=== PATIENT | female | born 1960 | race Asian ===

== ENCOUNTER 2022-11-06 22:30 | Emergency (ER) | payer OTHER, MEDICAID, SELFPAY ==
[2022-11-06 22:38] VITALS: BP 180/85; PULSE 75; RESP 18; TEMP 36.6; O2SAT 99; BMI 21.7
[2022-11-06 23:13] LABS: Add Manual Diff / Slide Review NO; Basophils Absolute Auto 100 /uL (0-100); Basophils Percent Auto 1.1 % (0-2); Eosinophils Absolute Auto 100 /uL (0-450); Eosinophils Percent Auto 0.8 % (2-4); Hematocrit 38.7 % (36-46); Lymphocytes Absolute Auto 2500 /uL (1100-4500); Lymphocytes Percent Auto 37.6 % (25-40); Mean Corpuscular HGB Conc 33.6 % (30-36); Mean Corpuscular Hemoglobin 29.4 PG (26-34); Mean Corpuscular Volume 87.5 fL (80-100); Monocytes Absolute Auto 400 /uL (0-900); Monocytes Percent Auto 6.1 % (3-14); Neutrophils Absolute Auto 3600 /uL (1500-7000); Neutrophils Percent Auto 54.4 % (50-75); Platelet Count 267 X10^3/uL (150-400); Red Blood Cell Count 4.43 X10^6/uL (4.0-5.2); Red Cell Distribution Width 13.6 % (11.6-14.8); White Blood Cell Count 6.6 X10^3/uL (4.5-11.0)
[2022-11-06 23:20] LABS: Alanine Aminotransferase 24 IU/L (<35); Albumin 4.7 g/dL (3.5-5.0); Albumin Globulin Ratio 1.3 (1.0-2.8); Alkaline Phosphatase 71 U/L (38-126); Aspartate Aminotransferase 27 IU/L (14-36); BUN Creatinine Ratio 21.2 (6-22); Bilirubin Total 0.8 mg/dL (0.2-1.3); Blood Urea Nitrogen 14 mg/dL (7-17); Calcium 10.3 mg/dL (8.4-10.2); Carbon Dioxide 30 mmol/L (22-32); Chloride 100 mmol/L (98-107); Estimated Glomerular Filt Rate > 60 mL/min (>60); Globulin 3.6 g/dL (1.7-4.1); Glucose 157 mg/dL (80-110); HEMOLYSIS < 15 (0-50); Lipase 189 U/L (23-300); Potassium 4.1 mmol/L (3.4-5.1); Sodium 138 mmol/L (137-145); Total Protein 8.3 g/dL (6.3-8.2)
[2022-11-06 23:36] VITALS: PULSE 62; RESP 16; O2SAT 99
--- NOTE | 2022-11-06 23:41 | ED.ABDPAIN ---
HPI - Abdominal Pain General Chief Complaint: Abdominal Pain Stated Complaint: abd pain Time Seen by Provider: 11/06/22 23:18 Source: patient Mode of arrival: Ambulatory History of Present Illness HPI narrative: 61-year-old female nonsmoker without chronic medical history presents with her daughter and a chief complaint of 5 days of gradually worsening abdominal pain. She states it started in her epigastrium and has now moved down to her periumbilical region. It seems to be worse when she moves and improves with rest. She denies that it radiates anywhere. It does not get worse with food though eating makes her nauseated. She is had no vomiting and denies any fever or chills. She denies any change in bowel habits such as constipation or diarrhea and has no urinary complaints such as dysuria, frequency, urgency or hematuria. Related Data Previous Rx's Medication Instructions Recorded hydrocodone 5 mg-acetaminophen 325 1 tab PO Q4-6H PRN pain #10 tabs 11/07/22 mg tablet hyoscyamine sulfate 0.125 mg tablet 0.125 mg PO BID-QID PRN dyspepsia 11/07/22 #20 tabs ondansetron 4 mg disintegrating 4 mg PO TID-QID PRN nausea and 11/07/22 tablet vomiting #10 tabs Allergies Allergy/AdvReac Type Severity Reaction Status Date / Time No Known Drug Allergies Allergy Verified 11/06/22 22:38 Review of Systems Review of Systems Narrative: GENERAL: Denies chills, fatigue, malaise, fever, sweats. HEENT: Denies sinus pain, ear pain, sore throat, difficulty swallowing, dizziness. RESPIRATORY: Denies dyspnea, cough, wheezing, hemoptysis, sputum. CARDIOVASCULAR: Denies chest pain, palpitations, orthopnea, edema, GASTROINTESTINAL: See HPI : Denies dysuria, frequency, incontinence, hematuria, urinary retention. MUSCULOSKELETAL: denies weakness, joint pain, or bony pain SKIN: Denies rash, skin lesions, or other NEUROLOGIC: Denies weakness, headache, numbness, change in speech, confusion, seizures, incoordination. PSYCHIATRIC: No concerning psychosocial issues. 12 point review of systems is negative except for those stated above Patient History Social History Smoking Status: Never smoker Smoking Status: Never smoker Exam Narrative Exam Narrative: GENERAL: [61] year old patient appears stated age. Well-developed patient, in mild distress. HEAD: Atraumatic. Normocephalic. EYES: Pupils equal round and reactive. Extraocular motions intact. No scleral icterus. No injection or drainage. ENT: Nose without bleeding, purulent drainage. Throat without erythema, tonsillar hypertrophy or exudate. Airway patent. NECK: Trachea midline. Non tender CARDIOVASCULAR: Regular rate and rhythm without murmurs, gallops, or rubs. RESPIRATORY: Clear to auscultation. Breath sounds equal bilaterally. No wheezes, rales, or rhonchi. GASTROINTESTINAL: Abdomen soft, minimal periumbilical tenderness, nondistended. Bowel sounds present in all 4 quadrants EXTREMITIES: No edema or joint tenderness. BACK: Nontender without deformity or crepitance. No flank tenderness. NEURO: AOx3. SKIN: No rash or erythema of visible areas Initial Vital Signs Initial Vital Signs: Vital Signs Temperature 97.9 F 11/06/22 22:38 Pulse Rate 75 11/06/22 22:38 Respiratory Rate 18 11/06/22 22:38 Blood Pressure 180/85 H 11/06/22 22:38 Pulse Oximetry 99 11/06/22 22:38 Oxygen Delivery Method Room Air 11/06/22 22:38 Course Orders Ordered: ED Orders 11/06/22 22:45 EKG-12 Lead Stat 11/06/22 23:00 Complete Blood Count AUTO DIFF Stat Comprehensive Metabolic Panel Stat Lipase Stat 11/06/22 23:42 CT abdomen pelvis w con Stat Ondansetron HCl (Ondansetron 4 Mg Odt) 4 mg PO NOW PRN PRN Reason: Nausea And Vomiting Ondansetron HCl (Ondansetron 4 Mg/2 Ml Inj) 4 mg IV NOW PRN PRN Reason: Nausea And Vomiting Discontinued Medications Hydrocodone Bitart/Acetaminophen (Hydrocodone/Acet 5/325 Prepack) 1 bottle MISC SEEINSTR ONE Stop: 11/07/22 02:55 Sodium Chloride (Normal Saline 0.9%) 1,000 mls @ 1,000 mls/hr IV BOLUS ONE Stop: 11/07/22 02:47 Last Admin: 11/07/22 02:05 Dose: 1,000 mls/hr Documented By: GC Morphine Sulfate (Morphine 4 Mg/Ml Inj) 4 mg IV NOW ONE Stop: 11/07/22 01:49 Last Admin: 11/07/22 02:06 Dose: 4 mg Documented By: MAXINE Ondansetron HCl (Ondansetron 4 Mg Odt Prepack) 1 bottle MISC SEEINSTR ONE Stop: 11/07/22 02:55 Pantoprazole Sodium (Pantoprazole 40 Mg Vial) 40 mg IV NOW ONE Stop: 11/07/22 01:49 Last Admin: 11/07/22 02:06 Dose: 40 mg Documented By: MAXINE Vital Signs Vital signs: Vital Signs - 8 hr 11/06/22 22:38 11/06/22 23:36 11/07/22 00:06 Temperature 97.9 F Pulse Rate 75 62 69 Respiratory Rate 18 16 16 Blood Pressure 180/85 H Pulse Oximetry 99 99 99 Oxygen Delivery Method Room Air 11/07/22 00:08 11/07/22 00:08 11/07/22 00:30 Temperature Pulse Rate 70 Respiratory Rate 16 Blood Pressure 163/79 H 134/70 Pulse Oximetry 99 Oxygen Delivery Method 11/07/22 00:30 11/07/22 01:00 11/07/22 01:00 Temperature Pulse Rate 62 62 Respiratory Rate 16 14 Blood Pressure 157/77 H Pulse Oximetry 97 95 Oxygen Delivery Method 11/07/22 01:30 11/07/22 01:30 11/07/22 02:00 Temperature Pulse Rate 60 Respiratory Rate 15 Blood Pressure 123/70 119/69 Pulse Oximetry 96 Oxygen Delivery Method 11/07/22 02:00 11/07/22 02:30 11/07/22 02:30 Temperature Pulse Rate 60 57 L Respiratory Rate 22 13 Blood Pressure 126/65 Pulse Oximetry 95 96 Oxygen Delivery Method MDM - Abdominal Pain Lab Data 11/06/22 23:00 11/06/22 23:00 Labs: Lab Results 11/06/22 11/06/22 Range/Units 23:00 23:00 WBC 6.6 (4.5-11.0) X10^3/uL RBC 4.43 (4.0-5.2) X10^6/uL Hgb 13.0 (12.0-16.0) g/dL Hct 38.7 (36-46) % MCV 87.5 (80-100) fL MCH 29.4 (26-34) PG MCHC 33.6 (30-36) % RDW 13.6 (11.6-14.8) % Plt Count 267 (150-400) X10^3/uL Neut % (Auto) 54.4 (50-75) % Lymph % (Auto) 37.6 (25-40) % [place] % (Auto) 6.1 (3-14) % Eos % (Auto) 0.8 L (2-4) % Baso % (Auto) 1.1 (0-2) % Neut # (Auto) 3600 (7172-6161) /uL Lymph # (Auto) 2500 (3741-8406) /uL [place] # (Auto) 400 (0-900) /uL Eos # (Auto) 100 (0-450) /uL Baso # (Auto) 100 (0-100) /uL Sodium 138 (137-145) mmol/L Potassium 4.1 (3.4-5.1) mmol/L Chloride 100 (98-107) mmol/L Carbon Dioxide 30 (22-32) mmol/L BUN 14 (7-17) mg/dL Creatinine 0.66 (0.52-1.04) mg/dL Estimated GFR > 60 (>60) mL/min BUN/Creatinine Ratio 21.2 (6-22) Glucose 157 H (80-110) mg/dL Calcium 10.3 H (8.4-10.2) mg/dL Total Bilirubin 0.8 (0.2-1.3) mg/dL AST 27 (14-36) IU/L ALT 24 (<35) IU/L Alkaline Phosphatase 71 (38-126) U/L Total Protein 8.3 H (6.3-8.2) g/dL Albumin 4.7 (3.5-5.0) g/dL Globulin 3.6 (1.7-4.1) g/dL Albumin/Globulin Ratio 1.3 (1.0-2.8) Lipase 189 (23-300) U/L Point of care testing: Urine Dip Bedside Urine Glucose Negative Bedside Urine Bilirubin - Negative Bedside Urine Ketone - Negative Urine Specific [place] 1.005 Bedside Urine Occult Blood - Negative Bedside Urine pH 6.0 Bedside Urine Protein - Negative Bedside Urine Urobilinogen - Negative Bedside Urine Nitrite - Negative Bedside Urine Leukocytes - Negative Esterase MDM Narrative Medical decision making narrative: CC: 61-year-old female with 5 days of generalized abdominal pain Complicating co-morbidities: Age Data collected from: Patient Medical records reviewed: Prior notes reviewed in our EMR Differential considered, but not limited to: Bowel obstruction versus appendicitis versus colitis versus other: Exam documented above, pertinent findings include: Heart rate regular, lungs clear, abdomen soft but tender in the periumbilical region, bowel sounds present Lab Test results independently reviewed as above. Pertinent findings: No leukocytosis or left shift, electrolytes, LFTs and bilirubin as well as lipase all within normal Independently reviewed EKG as above Imaging studies independently reviewed: Small region of mild pericolonic fat stranding consistent with epiploic appendagitis or omental infarct. Otherwise no definite intra-abdominal abnormality Treatments: Fluids, Protonix, morphine Re-evaluations: Significant improvement Discussion: 61-year-old female with a few days of worsening abdominal pain. She has stable vital signs and reassuring labs. Abdomen is soft but there is tenderness in the periumbilical region. Imaging demonstrates epiploic appendagitis versus omental infarct, otherwise unremarkable. This was discussed with on-call surgery, Dr. Phelps. This is a self-limiting diagnosis and no specific intervention is needed other than symptomatic control. That being said patient's symptoms are well controlled, she is tolerating orals and appropriate for discharge Disposition: see below, along with detailed discharge instructions that have been reviewed with patient as well as indications for ED re-evaluation and additional outpatient follow up Discharge Plan Departure Patient Disposition: Home Clinical Impression: Epiploic appendagitis Instructions: DI for Abdominal Pain-Adult Activity Restrictions/Additional Instructions: *You have been diagnosed with [abdominal pain due to epiploic appendagitis * As we discussed your history and physical exam as well as labs and imaging are very reassuring. There is no evidence of any severe diagnoses that would require a specific or immediate intervention. *What to do: *Please continue to take your regular medications as directed. [x ] New medication prescriptions sent to your pharmacy: [[facility]] *Please follow up with your primary care provider in 2-3 days, call for an appointment. Let them know you were seen in the Emergency Department and that we ask that you be seen in follow up. We will electronically transmit a record of today's note if your PCP is in our system *Please consider a clear liquid diet for the next 24-48 hours and then slowly advance to regular as tolerated. Also, try to avoid alcohol, nicotine, caffeine, spicy, acidic or fatty foods as this may worsen your symptoms *If you do not have a primary care provider please contact the [facility] Resource line at [phone]. They will ask some questions about your medical history and help get you set up with a doctor in the community. *Return to Emergency Department if you should have any new, worsening or concerning symptoms, such as [fever greater than 101 F, shaking chills, worsening pain, persistent vomiting or other bothersome symptoms] Prescriptions: New hydrocodone-acetaminophen 5-325 mg tablet 1 tab PO Q4-6H PRN (Reason: pain) Qty: 10 0RF hyoscyamine sulfate 0.125 mg tablet 0.125 mg PO BID-QID PRN (Reason: dyspepsia) Qty: 20 0RF ondansetron 4 mg tablet,disintegrating 4 mg PO TID-QID PRN (Reason: nausea and vomiting) Qty: 10 0RF Stand Alone Forms: Patient Portal/API
--- NOTE | 2022-11-06 23:42 | DI.CT.S_ITS ---
PROCEDURE: CT ABDOMEN PELVIS W CON INDICATIONS: abdominal pain TECHNIQUE: After the administration of IV contrast, axial sections were acquired from the lung bases to the pubic symphysis. Coronal and sagittal reformats were performed. For radiation dose reduction, the following was used: automated exposure control, adjustment of mA and/or kV according to patient size. COMPARISON: [facility], CT, CT ABDOMEN PANCREATIC PROTOCOL, 07/25/2022, 11:40. FINDINGS: Image quality: Excellent. Lung bases: Unremarkable. Heart: Heart is normal in size. ABDOMEN: Liver: There are to cysts redemonstrated within the right and left hepatic lobes as well as a few additional small low-density foci in the liver which are too small to characterize but likely represent cysts. A small hypervascular focus medially within segment 6 of the inferior right hepatic lobe measuring up to 0.9 cm appears unchanged from the prior study. Findings are nonspecific but suggestive of a flash filling hemangioma. Gallbladder: Within normal limits without calcified gallstones. Biliary ducts: No biliary ductal dilatation. Pancreas: Unremarkable. Spleen: Normal in size. Adrenal Glands: No adrenal nodules. Kidneys and Ureters: No hydronephrosis. Stomach and Bowel: Stomach, small bowel loops, and colon are normal in caliber and wall thickness. The appendix is not discretely visualized and likely surgically absent. No pericecal inflammatory changes. There is colonic diverticulosis without acute diverticulitis. Peritoneum: Mild pericolonic fat stranding adjacent to the proximal transverse colon in the anterior abdomen is noted on series 2, image 47. No abnormal intraperitoneal fluid. No free air. Ventral Wall: No hernia. Abdominal Nodes: No retroperitoneal or mesenteric adenopathy by size criteria. Vessels: Aorta and inferior vena cava are normal in size. PELVIS: Pelvic Organs: A thin walled right ovarian cyst measuring up to 2.4 cm is demonstrated.. Bladder: Unremarkable. Pelvic Nodes: No enlarged lymph nodes. Miscellaneous: No inguinal hernias are seen. Bones: Visualized osseous structures demonstrate no suspicious focal lesions. IMPRESSION: 1. Small region of mild pericolonic fat stranding adjacent to the proximal transverse colon in the anterior abdomen. The findings are suggestive of epiploic appendagitis or an omental infarct. 2. Otherwise, no definite acute intra-abdominal abnormality. Dictated by: Jonah Alvarez M.D. on 11/07/2022 at 1:29 Approved by: Jonah Alvarez M.D. on 11/07/2022 at 1:34
[2022-11-07] VITALS (8 sets, daily range): BP systolic 119–163; BP diastolic 65–79; PULSE 57–70; RESP 13–22; TEMP 36.3; O2SAT 95–99
[2022-11-07] MEDS: SODIUM CHLORIDE 0.9% 1,000 ML 1000 ML IV (02:05)
[2022-11-07] MEDS: PANTOPRAZOLE 40 MG VIAL IV (02:06)
[2022-11-07] MEDS: MORPHINE 4 MG/ML INJ IV (02:06)
[2022-11-07] MEDS: ONDANSETRON 4 MG ODT PREPACK 1 BOTTLE MISC (03:15)
[2022-11-07] MEDS: HYDROCODONE/ACET 5/325 PREPACK 1 BOTTLE MISC (03:15)
== END 2022-11-07 03:19 | disposition home or self-care (01) ==
PROVIDERS: Emergency Provider Emergency Medicine
DX: K63.89 Other specified diseases of intestine (principal); R10.9 Unspecified abdominal pain
CPT/HCPCS: 36415; 74177; 80053; 81003; 83690; 85025; 93005; 93010; 96374; 96375; 99284; C9113; J2270; Q9967